=== PATIENT | female | born 1955 | race Caucasian/White ===

== ENCOUNTER → 2023-07-30 | Outpatient (CLI) | payer OTHER ==
[~2023-07-30] MED LIST: AEC81 PO; CALC-1116 PO; FISH OIL OMEGA1 EACH PO; FLUO20CA36 PO; GLUC-145 PO; LORA10TA7 PO; LOVA20TA3 PO; METO-409 PO; MULT-660 PO; OLME20TA73 PO; TAMS0.4C32 PO; TOPI-255 PO; WARF-57 PO; WARF7.5T49 PO
== END | disposition home or self-care (01) ==
LOC: RAH 13:37
PROVIDERS: ATTEND Internal Medicine Cardiovascular Disease
DX: Z13.6 Encounter for screening for cardiovascular disorders (principal); I48.0 Paroxysmal atrial fibrillation
CPT/HCPCS: 75571

== ENCOUNTER → 2023-08-03 | Outpatient (CLI) | payer OTHER ==
[~2023-08-03] MED LIST changes: -TOPI-255 PO; +TOPI-97 PO
== END | disposition home or self-care (01) ==
LOC: SHCH 07:36
PROVIDERS: ATTEND Internal Medicine Cardiovascular Disease
DX: I51.7 Cardiomegaly (principal); I48.0 Paroxysmal atrial fibrillation
CPT/HCPCS: 93306